=== PATIENT | male | born 1990 | race Hispanic/Latino ===

== ENCOUNTER 2019-11-20 09:47 | Emergency (ER) | payer BC ==
[2019-11-20] MEDS ORDERED: Acetaminophen 325 MG TAB ONE (10:50)
[2019-11-20] MEDS ORDERED: Lidocaine 1% w/Epinephrine 1:100K 20 ML VIAL ONE (10:50)
[2019-11-20] MEDS ORDERED: Adacel (T-DAP) 0.5 ML SYRINGE ONE (10:50)
[2019-11-20] MEDS ORDERED: Morphine 4 MG/ML VIAL ONE (10:50)
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
[2019-11-20] MEDS ORDERED: Bacitracin 1 PK ONE (12:04)
== END 2019-11-20 12:20 | disposition home or self-care (01) ==
LOC: ERS 09:47
DX: S01.412A Laceration without foreign body of left cheek and temporomandibular area, initial encounter (principal); S01.81XA Laceration without foreign body of other part of head, initial encounter; Z23 Encounter for immunization; Y04.8XXA Assault by other bodily force, initial encounter
CPT/HCPCS: 12011; 70450; 70486; 72125; 90471; 90715; 96372; J2270